=== PATIENT | female | born 1960 | race American Indian/Alaskan Native ===

== ENCOUNTER 2017-07-04 14:50 | Emergency (ER) | payer BC ==
--- NOTE | 2017-07-04 16:25 | EDM.PDOC ---
ED HPI GENERAL MEDICAL PROBLEM - General Chief Complaint: Neurological Problem Stated Complaint: SEIZURES & BOWEL OBSTRUCTION Time Seen by Provider: 07/04/17 16:00 Source of Information: Reports: Patient, Family, Old Records History Limitations: Reports: No Limitations - History of Present Illness INITIAL COMMENTS - FREE TEXT/NARRATIVE: 57 yo female presents with 2 longstanding complaints. One is seizures. She says she has been having seizures, the last last night, that have been ongoing for a long time. She saw neurology in [place] and says they did not take her seriously. Her records suggest a dx of pseudoseizures. Did not bite her tongue or have any urinary incontinence. In her words she has almost daily episodes of "shutting down" usually between 5 pm and 9 pm. During these spells she can't talk or function. Shaking is not a part of these spells. Also she has bloating after eating without vomiting. Had a normal colonoscopy a couple yrs ago. Had a CT scan scheduled, but cancelled due to concern about allergy to the contrast. Has no current abdominal pain. Onset: Unknown/Unsure Duration: Chronic, Recurring Location: Reports: Abdomen, Generalized Quality: Reports: Other (mild pain with her intermittent abd bloating) Severity: Mild Improves with: Reports: Other (? 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) Abdominal Pain Score (Numeric/FACES): 10 - Related Data Allergies Allergy/AdvReac Type Severity Reaction Status Date / Time Sulfa (Sulfonamide Allergy Intermediate Difficulty Verified 07/04/17 16:18 Antibiotics) Swallowing acetaminophen [From Vicodin] Allergy Hives Verified 07/04/17 15:20 hydrocodone bitartrate Allergy Hives Verified 07/04/17 15:20 [From Vicodin] Penicillins Allergy Hives Verified 07/04/17 15:20 Home Meds: Home Meds LORazepam [Ativan] 1 mg PO DAILY PRN 11/01/13 [History] Levothyroxine Sodium [Levothyroxine Sodium] 75 mcg PO DAILY 11/01/13 [History] valACYclovir HCl [valACYclovir] 1,000 mg PO DAILY 11/01/13 [History] Cyanocobalamin (Vitamin B12) [Vitamin B12] 1,000 mcg IJ ASDIRECTED 07/04/17 [ History] Cyclobenzaprine [Flexeril] 10 mg PO TID PRN 07/04/17 [History] Past Medical History Other Cardiovascular History: Raynauds Respiratory History: Reports: Asthma, PE Other Respiratory History: 2005 Gastrointestinal History: Reports: Celiac Disease, Inflammatory Bowel Disease Genitourinary History: Reports: UTI, Recurrent 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: Polycystic Ovaries, Musculoskeletal History: Reports: Arthritis, Neck Pain, Chronic, Other (See Below) Other Musculoskeletal History: chronic myofascial pain Neurological History: Reports: Migraines, Seizure, Other (See Below) Other Neuro History: psychogenic Nonepileptic seizures Psychiatric History: Reports: Anxiety, Suicide Attempt, Suicidal Ideation Endocrine/Metabolic History: Reports: Hypothyroidism Hematologic History: Reports: Anemia, B12 Deficiency Oncologic (Cancer) History: Reports: Other (See Below) Other Oncologic History: cervical neoplasia grade 1 - Infectious Disease History Infectious Disease History: Reports: C-Difficile, Herpes, Measles, Mumps - Past Surgical History GI Surgical History: Reports: Cholecystectomy, Colonoscopy, EGD, Other (See Below) Other GI Surgeries/Procedures: "tummy tuck". liposuction. egd with dil Female Surgical History: Reports: LEEP, Tubal Ligation, Other (See Below) Other Female Surgeries/Procedures: Cervical dysplasia Social & Family History - Tobacco Use Smoking Status *Q: Former Smoker Used Tobacco, but Quit: Yes Month Tobacco Last Used: 1977 Second Hand Smoke Exposure: No - Caffeine Use Caffeine Use: Reports: None - Alcohol Use Days Per Week of Alcohol Use: 0 - Recreational Drug Use Recreational Drug Use: Yes Other Recreational Drug Type: canabis oil using for seizures ED ROS GENERAL - Review of Systems Review Of Systems: See Below Constitutional: Reports: No Symptoms HEENT: Reports: No Symptoms Respiratory: Reports: No Symptoms Cardiovascular: Reports: No Symptoms Endocrine: Reports: No Symptoms GI/Abdominal: Reports: Distension, Hematochezia (occasionally). Denies: Abdominal Pain, Anorexia, Black Stool, Constipation, Diarrhea, Flatus, Hematemesis, Melena, Nausea, Vomiting : Reports: No Symptoms Musculoskeletal: Reports: No Symptoms Skin: Reports: No Symptoms Neurological: Reports: Other (See description in HPI) Psychiatric: Reports: Anxiety ED EXAM, GI/ABD - Physical Exam Exam: See Below Exam Limited By: No Limitations General Appearance: Alert, WD/WN, No Apparent Distress Eyes: Bilateral: Normal Appearance Ears: Normal External Exam, Normal Canal, Hearing Grossly Normal, Normal TMs Nose: Normal Inspection, Normal Mucosa, No Blood Throat/Mouth: Normal Inspection, Normal Lips, Normal Teeth, Normal Oropharynx, Normal Voice, No Airway Compromise Head: Atraumatic, Normocephalic Neck: Normal Inspection, Supple, Non-Tender Respiratory/Chest: No Respiratory Distress, Lungs Clear, Normal Breath Sounds, No Accessory Muscle Use Cardiovascular: Regular Rate, Rhythm, No Edema GI/Abdominal Exam: Normal Bowel Sounds, Soft, Non-Tender, No Distention Back Exam: Normal Inspection. No: CVA Tenderness (R), CVA Tenderness (L) Extremities: Normal Inspection, Normal Range of Motion, Non-Tender, No Pedal Edema Neurological: Alert, Oriented, CN II-XII Intact, Normal Cognition Psychiatric: Normal Affect, Normal Mood Skin Exam: Warm, Dry, Intact, Normal Color, No Rash Lymphatic: No Adenopathy Course - Vital Signs Text/Narrative:: Phone conversation was made with her primary care provider. Last Recorded V/S: Last Vital Signs Temp 36.5 C 07/04/17 15:16 Pulse 84 07/04/17 16:06 Resp 16 07/04/17 16:06 BP 119/67 07/04/17 16:06 Pulse Ox 95 07/04/17 16:06 Departure - Departure Time of Disposition: 16:29 Disposition: Home, Self-Care 01 Condition: Good Clinical Impression: Pseudoseizures, Abdominal bloating - Discharge Information Referrals: Iker Chris MD [Primary Care Provider] - Forms: ED Department Discharge Additional Instructions: Follow up in the clinic to get your CT scan rescheduled and to arrange for any appropriate referrals.
== END 2017-07-04 16:27 | disposition home or self-care (01) ==
LOC: JP.ED 14:50
DX: F44.5 Conversion disorder with seizures or convulsions (principal); R14.0 Abdominal distension (gaseous); E03.9 Hypothyroidism, unspecified; Z88.0 Allergy status to penicillin; Z88.2 Allergy status to sulfonamides; Z88.6 Allergy status to analgesic agent; Z79.899 Other long term (current) drug therapy; Z87.891 Personal history of nicotine dependence
CPT/HCPCS: 99285

== ENCOUNTER 2020-07-27 12:39 | Emergency (ER) | payer BC ==
[2020-07-27] MEDS ORDERED: Sodium Chloride 0.9% 1,000 ML IV STA (12:59)
[2020-07-27] MEDS ORDERED: Sodium Chloride 0.9% 10 ML Syringe FLUSH PRN (12:59)
[2020-07-27] MEDS ORDERED: Ondansetron 4 MG/2 ML SDV IVPUSH ONE (12:59)
[2020-07-27] MEDS ORDERED: fentaNYL 100 MCG/2 ML SDV IVPUSH ONE (12:59)
--- NOTE | 2020-07-27 13:02 | EDM.PDOC ---
ED HPI GENERAL MEDICAL PROBLEM - General Chief Complaint: Abdominal Pain Stated Complaint: MEDICAL [facility] Time Seen by Provider: 07/27/20 12:55 Source of Information: Reports: Patient, EMS, RN Notes Reviewed History Limitations: Reports: No Limitations - History of Present Illness INITIAL COMMENTS - FREE TEXT/NARRATIVE: 61-year-old female presents emergency department a complaint of abdominal pain, she arrives via EMS for evaluation. States that abdominal pain which started yesterday she does feel nauseated no fevers she still passing gas does have a history of abdominal surgeries including tummy tuck and cholecystectomy Right Upper Abdomen Pain Score (Numeric/FACES): 10 - Related Data Allergies Allergy/AdvReac Type Severity Reaction Status Date / Time Sulfa (Sulfonamide Allergy Intermediate Difficulty Verified 07/27/20 12:44 Antibiotics) Swallowing acetaminophen [From Vicodin] Allergy Hives Verified 07/27/20 12:44 fentanyl Allergy Hives Verified 07/27/20 13:35 hydrocodone bitartrate Allergy Hives Verified 07/27/20 12:44 [From Vicodin] Penicillins Allergy Hives Verified 07/27/20 12:44 Home Meds: Home Meds LORazepam [Ativan] 1 mg PO DAILY PRN 11/01/13 [History] Levothyroxine Sodium 75 mcg PO DAILY 11/01/13 [History] valACYclovir HCl [valACYclovir] 1,000 mg PO DAILY 11/01/13 [History] Cyanocobalamin (Vitamin B12) [Vitamin B12] 1,000 mcg IJ ASDIRECTED 07/04/17 [History] Cyclobenzaprine [Flexeril] 10 mg PO TID PRN 07/04/17 [History] Past Medical History Cardiovascular History: Reports: Other (See Below) Other Cardiovascular History: Raynauds Respiratory History: Reports: Asthma, PE Other Respiratory History: 2005 Gastrointestinal History: Reports: Celiac Disease, Inflammatory Bowel Disease Genitourinary History: Reports: UTI, Recurrent 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: Polycystic Ovaries, Musculoskeletal History: Reports: Arthritis, Neck Pain, Chronic, Other (See Below) Other Musculoskeletal History: chronic myofascial pain Neurological History: Reports: Migraines, Other (See Below) Other Neuro History: psychogenic Nonepileptic seizures Psychiatric History: Reports: Anxiety, Suicide Attempt, Suicidal Ideation Endocrine/Metabolic History: Reports: Hypothyroidism Hematologic History: Reports: Anemia, B12 Deficiency Oncologic (Cancer) History: Reports: Other (See Below) Other Oncologic History: cervical neoplasia grade 1 - Infectious Disease History Infectious Disease History: Reports: C-Difficile, Herpes, Measles, Mumps - Past Surgical History Head Surgeries/Procedures: Reports: None Cardiovascular Surgical History: Reports: None Respiratory Surgical History: Reports: None GI Surgical History: Reports: Cholecystectomy, Colonoscopy, EGD, Other (See Below) Other GI Surgeries/Procedures: "tummy tuck". liposuction. egd with dil Female Surgical History: Reports: LEEP, Tubal Ligation, Other (See Below) Other Female Surgeries/Procedures: Cervical dysplasia Endocrine Surgical History: Reports: None Neurological Surgical History: Reports: None Musculoskeletal Surgical History: Reports: None Oncologic Surgical History: Reports: None Dermatological Surgical History: Reports: None Social & Family History - Tobacco Use Tobacco Use Status *Q: Never Tobacco User - Caffeine Use Caffeine Use: Reports: None - Recreational Drug Use Recreational Drug Use: No ED ROS GENERAL - Review of Systems Review Of Systems: See Below Constitutional: Reports: Diaphoresis. Denies: Fever, Chills HEENT: Reports: No Symptoms Respiratory: Reports: No Symptoms Cardiovascular: Reports: No Symptoms GI/Abdominal: Reports: Abdominal Pain, Flatus, Nausea. Denies: Constipation, Diarrhea, Vomiting : Reports: No Symptoms Psychiatric: Reports: Anxiety, Hallucinations (Seeing monsters in her stool). Denies: Homicidal Ideation, Suicidal Ideation ED EXAM, GI/ABD - Physical Exam Exam: See Below Exam Limited By: No Limitations General Appearance: Alert, Mild Distress Respiratory/Chest: No Respiratory Distress, Lungs Clear, Normal Breath Sounds, No Accessory Muscle Use, Chest Non-Tender Cardiovascular: Regular Rate, Rhythm, No Murmur GI/Abdominal Exam: Soft, Tender (Generalized tenderness to palpation), Abnormal Bowel Sounds Extremities: No Pedal Edema Course - Vital Signs Last Recorded V/S: Last Vital Signs Temp 98.2 F 07/27/20 12:41 Pulse 77 07/27/20 15:50 Resp 15 07/27/20 15:50 BP 111/55 L 07/27/20 15:50 Pulse Ox 97 07/27/20 15:50 - Orders/Labs/Meds Orders: Active Orders 24 hr Category Date Time Status Peripheral IV Care [RC] . DIRECTED Care 07/27/20 13:00 Active Sodium Chloride 0.9% [Saline Flush] Med 07/27/20 12:59 Active 10 ml FLUSH ASDIRECTED PRN Peripheral IV Insertion Adult [OM.PC] Urgent Oth 07/27/20 12:59 Ordered Medication Orders Sodium Chloride (Saline Flush) 10 ml FLUSH ASDIRECTED PRN PRN Reason: Keep Vein Open Last Admin: 07/27/20 13:18 Dose: 10 ml Documented by: LINDA Labs: Laboratory Tests 07/27/20 07/27/20 07/27/20 Range/Units 13:14 13:14 13:14 WBC 7.6 (4.5-11.0) K/uL RBC 4.87 (3.30-5.50) M/uL Hgb 15.6 H (12.0-15.0) g/dL Hct 47.1 (36.0-48.0) % MCV 97 (80-98) fL MCH 32 H (27-31) pg MCHC 33 (32-36) % Plt Count 273 (150-400) K/uL Neut % (Auto) 85 H (36-66) % Lymph % (Auto) 11 L (24-44) % [place] % (Auto) 3 (2-6) % Eos % (Auto) 0 L (2-4) % Baso % (Auto) 0 (0-1) % Sodium 138 L (140-148) mmol/L Potassium 4.2 (3.6-5.2) mmol/L Chloride 103 (100-108) mmol/L Carbon Dioxide 27 (21-32) mmol/L Anion Gap 12.2 (5.0-14.0) mmol/L BUN 11 (7-18) mg/dL Creatinine 0.6 (0.6-1.0) mg/dL Est Cr Clr Drug Dosing 69.83 mL/min Estimated GFR (MDRD) > 60 (>60) Glucose 125 H (74-106) mg/dL Lactic Acid 1.2 (0.4-2.0) mmol/L Calcium 8.9 (8.5-10.1) mg/dL Total Bilirubin 0.3 (0.2-1.0) mg/dL AST 17 (15-37) U/L ALT 17 (12-78) U/L Alkaline Phosphatase 86 (46-116) U/L Total Protein 7.4 (6.4-8.2) g/dL Albumin 4.1 (3.4-5.0) g/dL Globulin 3.3 (2.3-3.5) g/dL Albumin/Globulin Ratio 1.2 (1.2-2.2) TSH, Ultra Sensitive (0.358-3.740) uIU/mL Urine Color (YELLOW) Urine Appearance (CLEAR) Urine pH (5.0-8.0) Ur Specific Switchback (1.008-1.030) Urine Protein (NEGATIVE) mg/dL Urine Glucose (UA) (NEGATIVE) mg/dL Urine Ketones (NEGATIVE) mg/dL Urine Occult Blood (NEGATIVE) Urine Nitrite (NEGATIVE) Urine Bilirubin (NEGATIVE) Urine Urobilinogen (0.2-1.0) EU/dL Ur Leukocyte Esterase (NEGATIVE) Urine RBC (0-5) Urine WBC (0-5) Ur Epithelial Cells Amorphous Sediment Urine Bacteria Urine Mucus Urine Opiates Screen (NEGATIVE) Ur Oxycodone Screen (NEGATIVE) Urine Methadone Screen (NEGATIVE) Ur Propoxyphene Screen (NEGATIVE) Ur Barbiturates Screen (NEGATIVE) Ur Tricyclics Screen (NEGATIVE) Ur Phencyclidine Scrn (NEGATIVE) Ur Amphetamine Screen (NEGATIVE) U Methamphetamines Scrn (NEGATIVE) Urine MDMA Screen (NEGATIVE) U Benzodiazepines Scrn (NEGATIVE) U Cocaine Metab Screen (NEGATIVE) U Marijuana (THC) Screen (NEGATIVE) 07/27/20 07/27/20 07/27/20 Range/Units 13:15 13:23 14:02 WBC (4.5-11.0) K/uL RBC (3.30-5.50) M/uL Hgb (12.0-15.0) g/dL Hct (36.0-48.0) % MCV (80-98) fL MCH (27-31) pg MCHC (32-36) % Plt Count (150-400) K/uL Neut % (Auto) (36-66) % Lymph % (Auto) (24-44) % [place] % (Auto) (2-6) % Eos % (Auto) (2-4) % Baso % (Auto) (0-1) % Sodium (140-148) mmol/L Potassium (3.6-5.2) mmol/L Chloride (100-108) mmol/L Carbon Dioxide (21-32) mmol/L Anion Gap (5.0-14.0) mmol/L BUN (7-18) mg/dL Creatinine (0.6-1.0) mg/dL Est Cr Clr Drug Dosing mL/min Estimated GFR (MDRD) (>60) Glucose (74-106) mg/dL Lactic Acid (0.4-2.0) mmol/L Calcium (8.5-10.1) mg/dL Total Bilirubin (0.2-1.0) mg/dL AST (15-37) U/L ALT (12-78) U/L Alkaline Phosphatase (46-116) U/L Total Protein (6.4-8.2) g/dL Albumin (3.4-5.0) g/dL Globulin (2.3-3.5) g/dL Albumin/Globulin Ratio (1.2-2.2) TSH, Ultra Sensitive 1.331 (0.358-3.740) uIU/mL Urine Color Yellow (YELLOW) Urine Appearance Clear (CLEAR) Urine pH 6.5 (5.0-8.0) Ur Specific Switchback 1.020 (1.008-1.030) Urine Protein Negative (NEGATIVE) mg/dL Urine Glucose (UA) Negative (NEGATIVE) mg/dL Urine Ketones Negative (NEGATIVE) mg/dL Urine Occult Blood Negative (NEGATIVE) Urine Nitrite Negative (NEGATIVE) Urine Bilirubin Negative (NEGATIVE) Urine Urobilinogen 0.2 (0.2-1.0) EU/dL Ur Leukocyte Esterase Trace H (NEGATIVE) Urine RBC 0-5 (0-5) Urine WBC 0-5 (0-5) Ur Epithelial Cells Moderate Amorphous Sediment Occasional Urine Bacteria Occasional Urine Mucus Moderate Urine Opiates Screen Negative (NEGATIVE) Ur Oxycodone Screen Negative (NEGATIVE) Urine Methadone Screen Negative (NEGATIVE) Ur Propoxyphene Screen Negative (NEGATIVE) Ur Barbiturates Screen Negative (NEGATIVE) Ur Tricyclics Screen Presumptive positive H (NEGATIVE) Ur Phencyclidine Scrn Negative (NEGATIVE) Ur Amphetamine Screen Negative (NEGATIVE) U Methamphetamines Scrn Negative (NEGATIVE) Urine MDMA Screen Negative (NEGATIVE) U Benzodiazepines Scrn Presumptive positive H (NEGATIVE) U Cocaine Metab Screen Negative (NEGATIVE) U Marijuana (THC) Screen Presumptive positive H (NEGATIVE) Meds: Medications Generic Name Dose Route Start Last Admin Trade Name Freq PRN Reason Stop Dose Admin Sodium Chloride 10 ml 07/27/20 12:59 07/27/20 13:18 Saline Flush FLUSH 10 ml ASDIRECTED PRN Administration Keep Vein Open Discontinued Medications Generic Name Dose Route Start Last Admin Trade Name Vanesa PRN Reason Stop Dose Admin Diphenhydramine HCl 50 mg 07/27/20 13:41 07/27/20 13:47 Benadryl IVPUSH 07/27/20 13:42 50 mg ONETIME ONE Administration Diphenhydramine HCl Confirm 07/27/20 13:42 07/27/20 13:47 Benadryl Administered 07/27/20 13:43 Not Given Dose 50 mg .ROUTE .STK-MED ONE Fentanyl 50 mcg 07/27/20 12:59 07/27/20 13:14 Sublimaze IVPUSH 07/27/20 13:00 50 mcg ONETIME ONE Administration Sodium Chloride 1,000 mls @ 500 mls/hr 07/27/20 12:59 07/27/20 13:32 Normal Saline IV 07/27/20 14:58 500 mls/hr .BOLUS STA Administration Lorazepam 1 mg 07/27/20 13:46 07/27/20 13:52 Ativan IVPUSH 07/27/20 13:47 1 mg ONETIME ONE Administration Ondansetron HCl 4 mg 07/27/20 12:59 07/27/20 13:14 Zofran IVPUSH 07/27/20 13:00 4 mg ONETIME ONE Administration - Re-Assessments/Exams Free Text/Narrative Re-Assessment/Exam: 07/27/20 14:00 I did going to review lab work and x-ray results with her she now admits that she has been having chronic abdominal pain and the reason she is having abdominal pain is because the monsters in her stool. She states over the last day or so she has seen them in her stool sometimes they have days and the mouth. She usually feels better after a bowel movement but she admits that she has not had one in the monsters are the ones causing problems. She is willing to be admitted to the hospital. Departure - Departure Time of Disposition: 16:00 Disposition: Home, Self-Care 01 Condition: Poor Clinical Impression: Abdominal pain Qualifiers: Abdominal location: generalized Qualified Code(s): R10.84 - Generalized abdominal pain - Discharge Information Instructions: Abdominal Pain, Adult, [id number] Referrals: PCP,None [Primary Care Provider] - Forms: ED Department Discharge Additional Instructions: Please bring in a stool sample for further evaluation, call or return to the emergency department worsening of symptoms Sepsis Event Note (ED) - Evaluation Sepsis Screening Result: No Definite Risk - Focused Exam Vital Signs: Vital Signs Temp Pulse Resp BP Pulse Ox 07/27/20 15:50 77 15 111/55 L 97 07/27/20 15:18 69 16 98/53 L 97 07/27/20 14:36 66 13 99/55 L 100 07/27/20 14:05 91 15 116/69 98 07/27/20 13:56 98 16 124/75 94 L 07/27/20 12:41 98.2 F 110 H 16 122/58 L 97 - My Orders Last 24 Hours: My Active Orders 07/27/20 12:59 Sodium Chloride 0.9% [Saline Flush] 10 ml FLUSH ASDIRECTED PRN Peripheral IV Insertion Adult [OM.PC] Urgent 07/27/20 13:00 Peripheral IV Care [RC] . DIRECTED - Assessment/Plan Last 24 Hours: My Active Orders 07/27/20 12:59 Sodium Chloride 0.9% [Saline Flush] 10 ml FLUSH ASDIRECTED PRN Peripheral IV Insertion Adult [OM.PC] Urgent 07/27/20 13:00 Peripheral IV Care [RC] . DIRECTED Plan: Assessment Acuity = chronic Site and laterality = abdominal pain Etiology = unknown Manifestations = none Location of injury = Home Lab values = CBC CMP urinalysis unremarkable abdominal film shows no acute process Plan I did have a chance to talk with her about the monsters that she is seeing in her abdomen he states there worms that she picked up in [place] in 2005 on a mission trip he did provide a grainy video of long stranded substances on a toilet brush it is possible but I did not appreciate any movement she is seen multiple physicians no stool cultures have ever been done more than stool culture Gram stain open parasite study with WBCs, I am suspicious this is psychiatric in nature and she is having hallucinations family is adamant she is not therefore she is discharged to the family This note was dictated using [email or web address] voice recognition software please call with any questions on syntax or grammar.
[2020-07-27] MEDS ORDERED: diphenhydrAMINE 50 MG/ML SDV IVPUSH ONE (13:41)
[2020-07-27] MEDS ORDERED: diphenhydrAMINE 50 MG/ML SDV ONE (13:42)
[2020-07-27] MEDS ORDERED: LORazepam 2 MG/ML SDV IVPUSH ONE (13:46)
--- NOTE | 2020-07-27 13:52 | CR ---
Abdomen 1V Upright CLINICAL HISTORY: Abdominal pain FINDINGS: No free air is identified. Small intestinal gas pattern is nonacute. There is some gas and feces in the colon. There are surgical clips in the right upper quadrant. IMPRESSION: Nonacute intestinal gas pattern
== END 2020-07-27 16:28 | disposition home or self-care (01) ==
LOC: JP.ED 12:39
DX: R10.84 Generalized abdominal pain (principal); J45.909 Unspecified asthma, uncomplicated; E03.9 Hypothyroidism, unspecified; Z88.2 Allergy status to sulfonamides; Z88.6 Allergy status to analgesic agent; Z88.4 Allergy status to anesthetic agent; Z88.5 Allergy status to narcotic agent; Z88.0 Allergy status to penicillin; Z79.899 Other long term (current) drug therapy
CPT/HCPCS: 36415; 74018; 80053; 80305; 81001; 83605; 84443; 85025; 96374; 96375; 99283; 99284; J1200; J2060; J2405; J3010; J7030